=== PATIENT | female | born 1945 | race Caucasian/White ===

== ENCOUNTER 2016-07-27 06:38 | Day surgery (SDC) | payer MEDICARE, OTHER ==
--- NOTE | ~2016-07-27 | EGD ---
EGD REPORT [facility] [address] [place] [address] NAME: MARILUZ KOVACS : [birth year] STATUS : REG [facility]#: [id number] AGE: 71 ADM/REG DATE : 07/27/16 MR#: [id number] REPORT SERV DATE: 07/27/16 DICTATED BY: FLORIAN FARMER DATE: 07/27/16 REPORT STATUS : Draft TRANSCRIBED BY: [facility] DATE: 07/27/16 [facility] Center Patient Name: Mariluz Kovacs Date of : 1945 Attending MD: FLORIAN FARMER MD Procedure Date No Time: 07/27/2016 Procedure: Colonoscopy Indications: High risk colon cancer surveillance: Personal history of non-advanced adenoma; last exam 2010. Patient Profile: Informed consent was obtained from the patient by me prior to the procedure. Risks, benefits, and alternatives were discussed including the risk of bleeding, perforation, infection, reaction to medicine, missed lesion, and cardiopulmonary complications. Referring MD: KRZYSZTOF WEBER Medicines: Monitored Anesthesia Care Complications: No immediate complications. Procedure: Pre-Anesthesia Assessment: - ASA Grade Assessment: III - A patient with severe systemic disease. After I obtained informed consent, the scope was passed under direct vision. Throughout the procedure, the patient's blood pressure, pulse, and oxygen saturations were monitored continuously. The PCF [id number] was introduced through the anus and advanced to the cecum, identified by appendiceal orifice and ileocecal valve. The colonoscope was slowly withdrawn with careful examination all mucosal surfaces including specific attention around flexures and tip deflection behind folds; retroflexion performed in rectum. The colonoscopy was performed without difficulty. The patient tolerated the procedure well. The quality of the bowel preparation was adequate. The ileocecal valve, appendiceal orifice and rectum were photographed. Findings: Two sessile polyps were found in the transverse colon. The polyps were 5 mm in size. These polyps were removed with a cold biopsy forceps. Resection and retrieval were complete. Multiple medium-mouthed diverticula were found in the sigmoid colon. Impression: - Two 5 mm polyps in the transverse colon. Resected and retrieved. - Diverticulosis in the sigmoid colon. EGD REPORT [address] [address] NAME: MARILUZ KOVACS : [birth year] STATUS : REG [facility] PAT#: [id number] AGE: 71 ADM/REG DATE : 07/27/16 MR#: [id number] REPORT SERV DATE: 07/27/16 DICTATED BY: FLORIAN FARMER DATE: 07/27/16 REPORT STATUS : Draft TRANSCRIBED BY: [email or web address] DATE: 07/27/16 Recommendation: - Patient has a contact number available for emergencies. The signs and symptoms of potential delayed complications were discussed with the patient. Return to normal activities tomorrow. Written discharge instructions were provided to the patient. - Regular diet. - Continue present medications. - Await pathology results. - Repeat colonoscopy for surveillance based on pathology results. Procedure Code(s): --- Professional --- 95614, Colonoscopy, flexible, proximal to splenic flexure; with biopsy, single or multiple Diagnosis Code(s): --- Professional --- D12.3, Benign neoplasm of transverse colon K57.30, Diverticulosis of large intestine without perforation or abscess without bleeding Z86.010, Personal history of colonic polyps CPT copyright 2013 [employer]. All rights reserved. The codes documented in this report are preliminary and upon extract puller review may be revised to meet current compliance requirements. FLORIAN FARMER MD 07/27/2016 8:23 AM This report has been signed electronically. Number of Addenda: 0 Note Initiated On: 07/27/2016 7:51 AM Scope Withdrawal Time 0 hours 12 minutes 13 seconds [address] [id number]
[~2016-07-27 06:38] MED LIST: ASA5GR PO; AUG875 PO; CALTRA600D PO; MIRAPEX5 PO; NAP250 PO; PRAVACHOL40 MG PO; PRILO PO; PRILOSEC40 MG PO; PRIN10 PO; PRIN20 PO; PROTONIX20 MG PO; REG5 PO; VICODINTAB PO; VITAMIN B-121000 MC1 SL; VITAMIN D2000 UNIT PO; VITAMIN D31000 UNIT PO; ZOFRAN4 PO; ZYRTEC ALLGY10 MG PO
== END 2016-07-27 23:59 | disposition home or self-care (01) ==
LOC: DMU 06:38
PROVIDERS: Internal Medicine Gastroenterology
PROC: 0DBL8ZX Excision of Transverse Colon, Via Natural or Artificial Opening Endoscopic, Diagnostic (ICD-10-PCS; principal; 2016-07-27 08:00)
DX: K63.5 Polyp of colon (principal); K57.30 Diverticulosis of large intestine without perforation or abscess without bleeding; I10 Essential (primary) hypertension; K21.9 Gastro-esophageal reflux disease without esophagitis; K31.84 Gastroparesis; M19.90 Unspecified osteoarthritis, unspecified site; E78.00 Pure hypercholesterolemia, unspecified; Z88.5 Allergy status to narcotic agent; Z88.8 Allergy status to other drugs, medicaments and biological substances; Z98.51 Tubal ligation status; Z86.010 Personal history of colon polyps; Z98.890 Other specified postprocedural states
CPT/HCPCS: 88305; J2405; J2765